=== PATIENT | male | born 1945 | race Caucasian/White ===

== ENCOUNTER 2017-04-18 11:11 | Emergency (ER) | payer MEDICARE, OTHER ==
[~2017-04-18] VITALS: Ht 180.3 cm; Wt 74.8 kg
[2017-04-18 11:27] VITALS: BP 118/76
== END 2017-04-18 12:02 | disposition home or self-care (01) ==
LOC: ER 11:11
DX: S50.861A Insect bite (nonvenomous) of right forearm, initial encounter (principal); W57.XXXA Bitten or stung by nonvenomous insect and other nonvenomous arthropods, initial encounter; Y93.89 Activity, other specified; Y99.8 Other external cause status; Y92.89 Other specified places as the place of occurrence of the external cause